=== PATIENT | male | born 1945 | race Asian ===

== ENCOUNTER 2019-06-26 20:41 | Emergency (ER) | payer OTHER ==
[~2019-06-26] VITALS: Ht 165.1 cm; Wt 63.5 kg
[2019-06-26 20:59] VITALS: Ht 165.1 cm; Wt 63.5 kg
[2019-06-26 22:49] VITALS: BP 125/78
== END 2019-06-26 22:49 | disposition home or self-care (01) ==
LOC: ED 20:41
DX: S62.601A Fracture of unspecified phalanx of left index finger, initial encounter for closed fracture (principal); S62.502A Fracture of unspecified phalanx of left thumb, initial encounter for closed fracture; I10 Essential (primary) hypertension; E11.9 Type 2 diabetes mellitus without complications; Z98.890 Other specified postprocedural states; Z86.73 Personal history of transient ischemic attack (TIA), and cerebral infarction without residual deficits; W54.0XXA Bitten by dog, initial encounter; Y93.89 Activity, other specified; Y92.89 Other specified places as the place of occurrence of the external cause; Y99.8 Other external cause status
CPT/HCPCS: 90715

== ENCOUNTER 2019-08-27 10:11 | Emergency (ER) | payer OTHER ==
[~2019-08-27] VITALS: Ht 162.6 cm; Wt 63.5 kg
[2019-08-27 10:15] VITALS: Ht 162.6 cm; Wt 63.5 kg
[2019-08-27 10:36] LABS: CALCIUM 8.4 mg/dL (8.5-10.1); CHLORIDE SERUM 102 mmol/L (98-107); CREATININE SERUM 0.9 mg/dL (0.7-1.3); GLUCOSE SERUM 247 mg/dL (74-106); POTASSIUM SERUM 3.8 mmol/L (3.5-5.1); SODIUM SERUM 137 mmol/L (136-145)
[2019-08-27 10:41] LABS: ALBUMIN 3.6 g/dL (3.4-5.0); ALKALINE PHOSPHATASE 79 U/L (46-116); ALT/SGPT 27 U/L (16-63); AST/SGOT 19 U/L (15-37); BASOPHIL % 0.6 % (0-2); BILIRUBIN TOTAL 0.4 mg/dL (0.20-1.00); TOTAL PROTEIN, SERUM 7.4 g/dL (6.4-8.2)
[2019-08-27 10:47] LABS: PLATELET COUNT 102 x10^3mcL (130-400)
[2019-08-27 14:38] VITALS: BP 127/72
== END 2019-08-27 14:38 | disposition home or self-care (01) ==
LOC: ED 10:11
DX: R42 Dizziness and giddiness (principal); R91.1 Solitary pulmonary nodule; I10 Essential (primary) hypertension; E11.9 Type 2 diabetes mellitus without complications; Z86.73 Personal history of transient ischemic attack (TIA), and cerebral infarction without residual deficits; Z98.890 Other specified postprocedural states
CPT/HCPCS: 82962; J7030; Q9967